=== PATIENT | male | born 1980 ===

== ENCOUNTER 2018-07-12 11:37 | Outpatient (CLI) | payer SELFPAY | END 2018-07-12 11:38 | disposition home or self-care (01) | LOC: C.RADH 11:37 | DX: S62.002K Unspecified fracture of navicular [scaphoid] bone of left wrist, subsequent encounter for fracture with nonunion (principal) ==

== ENCOUNTER 2018-08-06 10:32 | Outpatient (CLI) | payer SELFPAY | END 2018-08-06 10:33 | disposition home or self-care (01) | LOC: C.RADH 10:32 ==